=== PATIENT | male | born 1975 | race African-American/Black ===

== ENCOUNTER 2020-07-11 17:52 | Emergency (ER) | payer SELFPAY ==
[~2020-07-11] VITALS: Ht 180.3 cm; Wt 62.6 kg
--- NOTE | 2020-07-11 17:55 | NUR ---
PT BIB [facility] FROM OUTSIDE OF A STORE CLOSE TO HIS HOUSE. PT FOUND LYING FACE DOWN, DIAPHORETIC AND CONFUSED, OX1 ONLY. PT UNABLE TO PROVIDE ANY MEDICAL HX AT THE TIME. NO 12-LEAD DONE. VS PER EMS: HR 90s, 97% ON RA, BP 118 SYSTOLIC, BS 146. IV PLACED BY EMS. PT'S MENTAL STATUS IMPROVING UPON ARRIVAL TO ED, DOES REPORT HX OF SEIZURES, LAST ONE "ABOUT A YEAR AGO". ERP AT BS IMMEDIATELY. POC RV'WD WITH PT. PT KEEPS ASKING ABOUT HIS SHOES & GLASSES, STATES HE WAS ON HIS WAY HOME FROM WORK AND HAD A BAG WITH HIM (NO BAG FOUND BY [facility]). Addendum: 07/11/20 at 1822 by KIAN NO HEAD TRAUMA APPRECIATED PER EMS. MILD BRUISING/SWELLING TO L ELBOW.
[2020-07-11 18:02] VITALS: BP 125/85
--- NOTE | 2020-07-11 18:17 | NUR ---
PT NOW OX4, ABLE TO STAND AT SIDE OF BED. INSTRUCTED ON CLEAN CATCH URINE SAMPLE.
[2020-07-11 18:22] LABS: BASOPHILS % (AUTO) 1 % (0-1); EOSINOPHILS % (AUTO) 1 % (1-7); LYMPHOCYTES % (AUTO) 40 % (22-44); MEAN PLATELET VOLUME 8.2 fL (7.4-10.4); MONOCYTES % (AUTO) 10 % (2-9); NEUTROPHILS % (AUTO) 48 % (42-75); PLATELET COUNT 375 x10^3/uL (130-400); RED CELL DISTRIBUTION WIDTH 13.6 % (9.4-14.8)
[2020-07-11 18:27] LABS: MD NO
[2020-07-11] MEDS ORDERED: PLEASE ENTER HEIGHT AND WEIGHT MC SCH (18:30)
[2020-07-11] MEDS ORDERED: PLEASE ENTER ALLERGIES MC SCH (18:30)
[2020-07-11 18:34] LABS: ALANINE AMINOTRANSFERASE 23 U/L (12-78); ALBUMIN 5.1 g/dL (3.4-5.0); ANION GAP 26 mmol/L (5-15); CALCIUM 9.6 mg/dL (8.5-10.1); CHLORIDE 97 mmol/L (98-107); CREATININE 1.73 mg/dL (0.7-1.3)
[2020-07-11 18:37] LABS: ALKALINE PHOSPHATASE 82 U/L (45-117); BILIRUBIN,TOTAL 1.3 mg/dL (0.2-1.0)
[2020-07-11 18:40] LABS: SALICYLATE LEVEL < 1.7 mg/dL (2.8-20.0)
[2020-07-11] MEDS ORDERED: SODIUM CHLORIDE FLUSH 10ML SYR IVF ONE (19:00)
--- NOTE | 2020-07-11 19:00 | NUR ---
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 EDUCATED PT ABOUT RISKS OF NOT GETTING CT SCAN & LAB WORK, PT VERBALIZES UNDERSTANDING. INSTRUCTED PT TO RETURN TO ED FOR ANY CONCERNING SYMPTOMS. ERP NOTIFIED AND PT SIGNED AMA FORM. ENCOURAGED PT TO F/U WITH PCP REGARDING POSSIBLE SEIZURES.
[2020-07-11 19:31] LABS: AMPHETAMINE SCREEN, URINE Negative (Negative); BARBITURATE SCREEN, URINE Negative (Negative); BENZODIAZEPINE SCREEN, URINE Negative (Negative); CANNABINOID SCREEN, URINE Positive (Negative); COCAINE SCREEN, URINE Negative (Negative); METHADONE SCREEN, URINE Negative (Negative); OPIATE SCREEN, URINE Negative (Negative)
== END 2020-07-11 19:03 | disposition left against medical advice (07) ==
LOC: ED 18:53
DX: R56.9 Unspecified convulsions (principal); R55 Syncope and collapse; M25.522 Pain in left elbow; F17.200 Nicotine dependence, unspecified, uncomplicated
CPT/HCPCS: 36415; 80053; 80307; 85025; 93005; 99285